=== PATIENT | female | born 1960 | race Two or more races ===

== ENCOUNTER 2018-04-05 14:52 | Outpatient (CLI) | payer OTHER | END 2018-04-05 15:00 | disposition home or self-care (01) | LOC: NUCLEAR 14:52 | DX: M81.0 Age-related osteoporosis without current pathological fracture (principal) ==

== ENCOUNTER 2020-06-23 11:50 | Outpatient (CLI) | payer OTHER | END 2020-06-23 12:01 | disposition home or self-care (01) | LOC: NUCLEAR 11:50 | PROVIDERS: ATTEND Obstetrics & Gynecology | DX: M81.0 Age-related osteoporosis without current pathological fracture (principal) ==